=== PATIENT | female | born 1985 | race Caucasian/White ===

== ENCOUNTER → 2023-12-23 | Outpatient (CLI) | payer BC ==
[~2023-12-23] MED LIST: E-Z-GAS II EFFERVESCENT PACKET (SODIUM BICARB./CITRIC ACID/SIMETHICONE) As Ordered ONE; E-Z-HD 98% w/w 340GM SUSP BTL As Ordered ONE; E-Z-PAQUE 96% w/w SUSP 176GM BTL As Ordered ONE
== END ==
LOC: M RAD 09:07
PROVIDERS: ATTEND Physician Assistant Medical
DX: R13.10 Dysphagia, unspecified (principal)

== ENCOUNTER 2024-04-03 08:25 | Day surgery (SDC) | payer BC ==
[~2024-04-03] VITALS: Ht 162.6 cm; Wt 80.1 kg
[2024-04-03] MEDS: NS 1,000 ML IV ONE (09:34)
[2024-04-03] MEDS ORDERED: PROTPAK PO (09:38)
[2024-04-03] MEDS ORDERED: VENTAER INH (09:38)
[2024-04-03] MEDS ORDERED: AJOV225I SC (09:38)
[2024-04-03] MEDS ORDERED: RIME75TA PO (09:38)
[2024-04-03] MEDS: SCOPOLAMINE 1MG TRANSDERMAL PATCH TOP ONE (09:52)
[2024-04-03] MEDS ORDERED: propofoL 200 MG/20 ML VIAL As Ordered ONE (10:59)
[2024-04-03 11:40] VITALS: BP 121/72; TEMP 98.2; O2SAT 100
== END 2024-04-03 11:47 | disposition home or self-care (01) ==
LOC: M OPP 08:25
PROVIDERS: ATTEND Internal Medicine Gastroenterology
DX: R13.10 Dysphagia, unspecified (principal); K21.00 Gastro-esophageal reflux disease with esophagitis, without bleeding; Z91.010 Allergy to peanuts; Z91.011 Allergy to milk products; Z91.018 Allergy to other foods; Z88.2 Allergy status to sulfonamides

== ENCOUNTER 2024-11-13 07:58 | Day surgery (SDC) | payer BC ==
[~2024-11-13] VITALS: Ht 162.6 cm; Wt 81.7 kg
[~2024-11-13 07:58] MED LIST changes: +AJOV225I SC; +ALBU8.5H; +BREO1INH3; -E-Z-GAS II EFFERVESCENT PACKET (SODIUM BICARB./CITRIC ACID/SIMETHICONE) As Ordered ONE; -E-Z-HD 98% w/w 340GM SUSP BTL As Ordered ONE; -E-Z-PAQUE 96% w/w SUSP 176GM BTL As Ordered ONE; +LEVOTAB10 PO; +MULTTAB61 PO; +PANT20TA6; +PROTPAK PO; +RIME75TA PO; +TOPI-21 PO; +VENTAER INH; +VERA40TA PO
[2024-11-13 08:22] VITALS: TEMP 97.6
[2024-11-13] MEDS ORDERED: LIDOCAINE VISCOUS 2% SOLN 15ML UDC As Ordered ONE (09:29)
[2024-11-13 09:52] VITALS: BP 132/84; O2SAT 100
== END 2024-11-13 09:55 | disposition home or self-care (01) ==
LOC: M OPP 07:58
PROVIDERS: ATTEND Surgery
DX: R13.10 Dysphagia, unspecified (principal)